=== PATIENT | male | born 1935 | race Caucasian/White ===

== ENCOUNTER → 2016-06-01 | Outpatient (CLI) | payer OTHER | LOC: BHFA 14:45 | PROVIDERS: ATTEND Internal Medicine Cardiovascular Disease | DX: I48.92 Unspecified atrial flutter (principal); I47.1 Supraventricular tachycardia ==

== ENCOUNTER 2016-06-15 13:21 | Day surgery (SDC) | payer OTHER ==
[2016-06-15] MEDS ORDERED: LIDOCAINE 1% 30 ML SDV ONE (14:57)
--- NOTE | 2016-06-15 16:25 | SUROPNOTE ---
[facility] Operative Report - Surgery Date of Procedure: 06/15/16 Indication: This patient is a 80 year old man, with a history of ablation for SVT and atrial flutter, presenting with intermittent palpitations, associated with irregular heart rate of up to 130 bpm. Previous monitoring has been negative for atrial fibrillation. Loop recorder indicated for prolonged monitoring to assess presence of atrial fibrillation, which will dictate the need for anti-coagulant medication. Procedure performed: 1. Placement of an implantable loop recorder. Description of procedure: Risks, benefits, and alternatives were discussed in detail. Informed consent was obtained. Left anterior chest was sterilely prepped and draped. 30cc of 1% lidocaine with epinephrine was utilized for local anesthetic, injected with a micropuncture needle. A skin incision was made with a #15 blade. Tract was dilated using dilating tool. The device was implanted with the implantation device. The antenna was placed cephalad. The incision was closed with three philly. Device implanted: [employer] BioMonitor 2-AF, model [id number], serial [id number]. Portions of this report were documented by a medical office manager. I have reviewed this report and agree with the documentation. Report scribed for Dr. Jeromy Dawn. Report scribed by Jazzy Bautista.
== END 2016-06-15 16:31 | disposition home or self-care (01) ==
LOC: FCATH 13:21
PROVIDERS: ATTEND Internal Medicine Interventional Cardiology
PROC: 0JH602Z Insertion of Monitoring Device into Chest Subcutaneous Tissue and Fascia, Open Approach (ICD-10-PCS; principal; 2016-06-15)
DX: I48.91 Unspecified atrial fibrillation (principal); I48.92 Unspecified atrial flutter; I47.1 Supraventricular tachycardia
CPT/HCPCS: C1764

== ENCOUNTER 2018-08-12 10:14 | Emergency (ER) | payer OTHER ==
--- NOTE | 2018-08-12 10:40 | CPEKG ---
Test Reason : OPEN Blood Pressure : / mmHG Vent. Rate : 129 BPM Atrial Rate : 184 BPM P-R Int : 144 ms QRS Dur : 135 ms QT Int : 334 ms P-R-T Axes : 000 -63 012 degrees QTc Int : 490 ms Atrial fibrillation Right bundle branch block Probable posterior infarct, acute Confirmed by Miguelito Duncan ([id number]) on 08/12/2018 10:39:38 AM Referred By: PHYSICIAN ED Confirmed By:Miguelito Duncan
[2018-08-12] MEDS ORDERED: METOPROLOL TARTRATE 25 MG TAB PO ONE (10:47)
[2018-08-12] MEDS ORDERED: NS 1,000 ML IV ONE (10:47)
--- NOTE | 2018-08-12 10:48 | EDPHY ---
H & P Stated Complaint: watch says he is in afib no symptoms Time Seen by Provider: 08/12/18 10:38 HPI/ROS: CHIEF COMPLAINT: AFib HISTORY OF PRESENT ILLNESS: The patient is an 83-year-old man with a history of paroxysmal atrial fibrillation and coronary artery disease. He states that his apple watch gave him a notification 2 hr ago that he had an irregular heartbeat. He is on Eliquis and takes metoprolol 25 extended release every evening. He denies having any symptoms. No chest pain or palpitations. No shortness of breath. No dizziness or lightheadedness. He states that he had stopped drinking and had been free of AFib episodes for the last year and a half but began drinking again socially over the last week. No recent illness, infection or trauma. Severity: Moderate Modifying factors: None REVIEW OF SYSTEMS: Constitutional: denies: chills, fever, recent illness, recent injury EENTM: denies: blurred vision, double vision, nose congestion Respiratory: denies: cough, shortness of breath Cardiac: denies: chest pain, irregular heart rate, lightheadedness, palpitations Gastrointestinal/Abdominal: denies: abdominal pain, diarrhea, nausea, vomiting, blood streaked stools Genitourinary: denies: dysuria, frequency, hematuria, pain Musculoskeletal: denies: joint pain, muscle pain Skin: denies: lesions, rash, jaundice, bruising Neurological: denies: headache, numbness, paresthesia, tingling, dizziness, weakness Hematologic/Lymphatic: denies: blood clots, easy bleeding, easy bruising Immunologic/allergic: denies: HIV/AIDS, transplant 10 systems reviewed and negative except as noted EXAM: GENERAL: Well-appearing, well-nourished and in no acute distress. HEAD: Atraumatic, normocephalic. EYES: Pupils equal round and reactive to light, extraocular movements intact, sclera anicteric, conjunctiva are normal. ENT: TMs normal, nares patent, oropharynx clear without exudates. Moist mucous membranes. NECK: Normal range of motion, supple without lymphadenopathy or JVD. LUNGS: Breath sounds clear to auscultation bilaterally and equal. No wheezes rales or rhonchi. HEART: Tachycardic and slightly irregular without murmurs, rubs or gallops. ABDOMEN: Soft, nontender, normoactive bowel sounds. No guarding, no rebound. No masses appreciated. BACK: No CVA tenderness, no spinal tenderness, step-offs or deformities EXTREMITIES: Normal range of motion, no pitting or edema. No clubbing or cyanosis. NEUROLOGICAL: Cranial nerves II through XII grossly intact. Normal speech, normal gait. 5/5 strength, normal movement in all extremities, normal sensation , normal reflexes PSYCH: Normal mood, normal affect. SKIN: Warm, dry, normal turgor, no visible rashes or lesions. Source: Patient Exam Limitations: No limitations - Personal History Current Tetanus Diphtheria and Acellular Pertussis (TDAP): Yes Tetanus Vaccine Date: 2008 - Medical/Surgical History Hx Asthma: No Hx Chronic Respiratory Disease: No Hx Diabetes: No Hx Cardiac Disease: Yes Hx Renal Disease: No Hx Cirrhosis: No Hx Alcoholism: No Hx HIV/AIDS: No Hx Splenectomy or Spleen Trauma: No Other PMH: Afib, PROASTATE CA/ PROSTATECTOMY, SVT, RBBB, ANXIETY/DEPRESSION, LUMBAR L5-S1 - Family History Significant Family History: No pertinent family hx - Social History Smoking Status: Former smoker Alcohol Use: None Constitutional: Initial Vital Signs Temperature (C) 36.6 C 08/12/18 10:17 Heart Rate 76 08/12/18 10:17 Respiratory Rate 18 08/12/18 10:17 Blood Pressure 110/98 H 08/12/18 10:17 O2 Sat (%) 98 08/12/18 10:17 O2 Delivery Mode Room Air Allergies/Adverse Reactions: erythromycin base [Erythromycin Base] Allergy (Verified 08/12/18 10:15) Home Medications: Medication Instructions Recorded Cholecalciferol Vit D3 [Vitamin D3 1,000 units PO DAILY 11/24/13 (*)] DULoxetine [Cymbalta 60 MG (*)] 60 mg PO DAILY 11/24/13 Ranitidine HCl [Zantac] 150 mg PO BID 11/24/13 celeCOXIB [Celebrex (*)] 200 mg PO BID 11/24/13 oxyCODONE CR [Oxycontin] 10 mg PO BID 11/24/13 Apixaban [Eliquis] 5 mg PO BID #0 tab 01/21/15 Polyethylene Glycol 3350 [Miralax 17 gm PO Q2D 02/08/15 17 gm (*)] diphenhydrAMINE [Benadryl 25 MG 25 mg PO HS 02/08/15 (*)] Metoprolol Succinate 08/12/18 Medical Decision Making - Diagnostics EKG Interpretation: An EKG obtained and was read and documented in trace view. Please see trace view for full reading and report. Atrial fibrillation, right bundle branch block, similar to previous ED Course/Re-evaluation: Patient has a long history of paroxysmal AFib. His heart rate is currently 103. Will treat with an extra dose of metoprolol and observe. Will also hydrate. He is currently asymptomatic. 12:05 p.m. patient's heart rate is controlled. He remains asymptomatic and has stable vital signs. He is eager to go home. We discussed taking extra dose of metoprolol as needed and he will follow up with Dr. Dunham this week. He feels that this happened primarily because he began drinking again and now commit to abstain and from alcohol completely. Differential Diagnosis: Partial list of the Differential diagnosis considered include but were not limited to; atrial fibrillation, arrhythmia and although unlikely based on the history and physical exam, I also considered infection, acute coronary disease. - Data Points Laboratory Results: Laboratory Results 08/12/18 10:35 08/12/18 10:35 Medications Given: Discontinued Medications Sodium Chloride (Ns) 1,000 mls @ 0 mls/hr IV EDNOW ONE; Wide Open PRN Reason: Protocol Stop: 08/12/18 10:48 Last Admin: 08/12/18 11:07 Dose: 1,000 mls Metoprolol Tartrate (Lopressor) 25 mg PO EDNOW ONE Stop: 08/12/18 10:48 Last Admin: 08/12/18 11:07 Dose: 25 mg Point of Care Test Results: Chemistry 08/12/18 10:37 POC Troponin I 0.01 ng/mL ng/mL (0.00-0.08) Departure - Departure Disposition: Home, Routine, Self-Care Clinical Impression: Atrial fibrillation Qualifiers: Atrial fibrillation type: paroxysmal Qualified Code(s): I48.0 - Paroxysmal atrial fibrillation Condition: Fair Instructions: A-fib (Atrial Fibrillation) (ED) Referrals: Evie Craig MD [Primary Care Provider] - As per Instructions Jose Dunham MD [Medical Doctor] - 5-7 days, call for appt.
[2018-08-12 10:56] LABS: PLATELET COUNT 278 10^3/uL (150-400)
[2018-08-12 11:39] VITALS: BP 124/82
[2018-08-12 12:01] LABS: INR 1.21 (0.83-1.16); PROTIME(PATIENT) 14.8 SEC (12.0-15.0)
== END 2018-08-12 12:13 | disposition home or self-care (01) ==
DX: I48.0 Paroxysmal atrial fibrillation (principal); I25.10 Atherosclerotic heart disease of native coronary artery without angina pectoris; F41.8 Other specified anxiety disorders; Z79.01 Long term (current) use of anticoagulants; Z87.891 Personal history of nicotine dependence
CPT/HCPCS: 84484-ER

== ENCOUNTER 2018-08-15 11:36 | Emergency (ER) | payer OTHER ==
[2018-08-15] MEDS ORDERED: PROPOFOL 200 MG/20 ML VIAL ONE (13:26)
== END 2018-08-15 14:16 | disposition home or self-care (01) ==
DX: I48.92 Unspecified atrial flutter (principal); I48.91 Unspecified atrial fibrillation; I45.10 Unspecified right bundle-branch block; Z79.01 Long term (current) use of anticoagulants; Z87.891 Personal history of nicotine dependence; Z85.46 Personal history of malignant neoplasm of prostate; Z98.1 Arthrodesis status
CPT/HCPCS: 92960; 93005; 99156; 99285; J2704